=== PATIENT | male | born 2000 | race Two or more races ===

== ENCOUNTER 2023-06-19 18:21 | Emergency (ER) | payer OTHER ==
[2023-06-19 18:46] VITALS: BP 151/90; O2SAT 100
--- NOTE | 2023-06-19 19:48 | ED Physician Documentation ---
PD HPI LOWER EXT INJURY - Stated complaint Stated Complaint: R LEG INJ - Chief complaint Chief Complaint: Ext Problem - History obtained from History obtained from: Patient - Additional information Additional information: HPI from patient. Patient complains of sudden onset right upper leg pain. This occurred at approximately 5:45 this afternoon while playing softball and running the bases. The pain is posterior mid/distal thigh. He has been unable to bear any significant weight due to exacerbation of the pain when trying to do so. Denies numbness, weakness. Pain is also exacerbated with range of motion at both the hip as well as at the knee but the pain remains limited to the posterior distal thigh. Denies history of similar symptoms. Patient took Tylenol prior to arrival without adequate relief. Review of Systems Musculoskeletal: reports: Extremity pain. denies: Extremity swelling, Joint swelling Neurologic: denies: Focal weakness, Numbness PD PAST MEDICAL HISTORY - Past Medical History Past Medical History: No Cardiovascular: None Respiratory: None Neuro: None Endocrine/Autoimmune: None GI: None : None HEENT: None Musculoskeletal: None Derm: None - Past Surgical History Past Surgical History: No - Present Medications Home Medications: Ambulatory Orders Medication Instructions Recorded Confirmed Oxycodone HCl/Acetaminophen 1 - 2 each PO Q6H PRN #10 tablet 06/19/23 [Percocet 5-325 mg Tablet] - Allergies Allergies/Adverse Reactions: Allergies Allergy/AdvReac Type Severity Reaction Status Date / Time azithromycin [From Zithromax] AdvReac Unknown Verified 06/19/23 18:39 - Social History Does the pt smoke?: No Smoking Status: Never smoker Does the pt drink ETOH?: No Does the pt have substance abuse?: No - Immunizations Immunizations are current?: Yes - POLST Patient has POLST: No PD ED PE NORMAL - Vitals Vital signs reviewed: Yes - General General: Alert and oriented X 3, No acute distress (NAD at rest, obvious painful discomfort with palpation, ROM involving thigh), Well developed/nourished - Derm Derm: Normal color (no echymosis) - Extremities Extremities: No edema, Other (TTP right posterior distal thigh without gross deformity or soft tissue defect) Results - Vitals Vitals: Oxygen O2 Source Room air PD Medical Decision Making - ED course Complexity details: considered differential, d/w patient ED course: H&P are highly suggestive of thigh sprain. Emergent testing including imaging is not indicated at this time. He is placed in an articulating knee immobilizer and provided crutches. He is given 5 mg p.o. oxycodone, a take-home pack of Percocet, and have electronically submitted a prescription for percocet to his pharmacy of choice. Return recautions are discussed, advised to seek follow-up with PCP within the next 2 to 3 days. I am prescribing a short course of short-acting opioid pain medication for this patient. I have reviewed the patients [employer] and no concerning findings were noted. I have discussed that the opioids are for short term therapy only, and will not be refilled from the ED. Departure - Departure Disposition: Home, Self Care Clinical Impression: Sprain Condition: Good Instructions: ED Crutch Walking, ED Strain Muscle Ext Follow-Up: [facility] nAdrew[facility] [Provider Group] Prescriptions: Oxycodone HCl/Acetaminophen [Percocet 5-325 mg Tablet] 1 - 2 each PO Q6H PRN #10 tablet PRN Reason: pain Comments: Your symptom description is consistent with a strain of the muscles and/or tendo ns. Testing on an emergency basis is not indicated at this time. I have electronically submitted a prescription for Percocet (narcotic/opiate pain medication) to the [facility] pharmacy in [place]. You can wait-bear as tolerated; in the meantime, use the crutches to minimize weightbearing during the day for the next 4-5 days (longer if you are still having symptoms when you wait-bear). Similarly, you can use the knee immobilizer to help keep the leg still, which should help speed the healing process. Contact your PCP tomorrow morning when the office is open to arrange for the next available appointment for reevaluation. I am prescribing a short course of narcotic pain medication for you. These are potentially dangerous and addictive medications that should be used carefully. These medications may constipate you. Take an qgwe-iaw-slcxeas stool softener (docusate) twice daily with plenty of water while taking these medications. If you go 24 hours without a bowel movement, take itaz-mbz-jgyhnks miralax, per package instructions. Do not drink or drive while taking these medications. If you received narcotic or sedating medications while in the emergency department, do not drive for 24 hours. Store this medication in a safe, secure place and out of reach of children. It is a violation of federal law to give or sell this medication to another person or to use in a manner other than prescribed. The ED will not refill narcotic prescriptions, including prescriptions lost or stolen. To dispose of unwanted medications: 1. [facility] at [address] in [place] has a medication drop box. They accept prescription medications (in pill form) Sunday through Sunday 9:00 a.m. to 5:00 p.m. 2. The [facility] accepts prescription medications (in pill form only) for disposal year round. Call for more information. 3. Contact the [facility] for the next [facility] sponsored prescription drug collection event. , [phone], or [phone]; Discharge Date/Time: 06/19/23 21:19
[2023-06-19] MEDS: oxyCODONE/ACET 5/325 Prepack 4 PO STA (20:40)
[2023-06-19] MEDS: oxyCODONE 5 MG TABLET PO STA (20:40)
== END 2023-06-19 21:19 | disposition home or self-care (01) ==
LOC: ED 18:21
DX: S76.911A Strain of unspecified muscles, fascia and tendons at thigh level, right thigh, initial encounter (principal); X58.XXXA Exposure to other specified factors, initial encounter; Y93.64 Activity, baseball
CPT/HCPCS: 99283; A9270